=== PATIENT | female | born 1950 | race Caucasian/White ===

== ENCOUNTER 2021-06-26 18:20 | Observation (INO) ==
[2021-06-26 19:20] LABS: Basophils # 0.1 K/mcL (0.0-0.2); Basophils % 0.6 %; Eosinophils # 0.3 K/mcL (0.0-0.6); Eosinophils % 2.1 %; Hematocrit 44.9 % (35.3-44.9); Hemoglobin 14.9 g/dL (11.5-15.4); Immature Granulocytes % 0.3 % (0-4); Lymphocytes # 5.1 K/mcL (0.6-4.6); Lymphocytes % 40.9 %; Mean Corpuscular HGB Conc 33.2 g/dL (31.6-35.5); Mean Corpuscular Hemoglobin 31.6 pg (28.0-33.3); Mean Corpuscular Volume 95.1 fL (83.0-100.0); Mean Platelet Volume 8.8 fL (9.4-12.4); Monocytes # 0.8 K/mcL (0.0-1.3); Monocytes % 6.4 %; Neutrophils # 6.2 K/mcL (1.6-8.9); Platelet Count 355 K/mcL (140-400); Red Blood Count 4.72 M/mcL (3.82-4.97); Red Cell Distribution Width 13.5 % (11.5-14.5); Segmented Neutrophils % 49.7 %; White Blood Count 12.5 K/mcL (4.3-11.1)
[2021-06-26] MEDS ORDERED: Aspirin 325 MG TABLET PO ONE (19:27)
[2021-06-26 19:28] LABS: INR 1.2; Prothrombin Time 12.9 Seconds (9.4-12.1)
[2021-06-26 19:30] LABS: Activated Partial Thrombo Time 41.6 Seconds (26.0-36.0)
[2021-06-26 19:45] LABS: BUN/Creatinine Ratio 21 (6-26); Blood Urea Nitrogen 18 mg/dL (8-23); Calcium 9.8 mg/dL (8.6-10.3); Carbon Dioxide 27 mEq/L (23-29); Chloride 104 mEq/L (98-107); Glucose 127 mg/dL (70-105); Osmolality,Calculated 287 (280-300); Potassium 3.1 mEq/L (3.5-5.1); Sodium 137 mEq/L (136-145); eGFR For African Americans > 60 (> 60); eGFR For Non-African Americans > 60 (> 60)
[2021-06-26 19:46] LABS: Troponin I < 0.03 ng/mL (< 0.04)
[2021-06-26] MEDS: Nitroglycerin 0.4 MG TAB.SUBL SL PRN ×2 (20:55→21:00)
[2021-06-26] MEDS ORDERED: Naloxone 0.4 MG/ML INJ IVP PRN (22:24)
[2021-06-26] MEDS ORDERED: Acetaminophen 325 MG TABLET PO PRN (22:24)
[2021-06-26] MEDS ORDERED: Ondansetron 4 MG/2 ML VIAL IVP PRN (22:24)
[2021-06-26] MEDS ORDERED: Melatonin 3 MG TABLET PO PRN (22:24)
[2021-06-26 22:26] LABS: Influenza A PCR Negative (Negative); Influenza B PCR Negative (Negative); Resp. Syncytial Virus PCR Negative (Negative); SARS-CoV-2 by PCR (In House) Negative (Negative)
[2021-06-27 01:30] LABS: Magnesium 2.1 mg/dL (1.6-2.6)
[2021-06-27] MEDS ORDERED: *HR* Heparin 5,000 UNIT/ML VIAL SQ SCH (06:00)
[2021-06-27] MEDS ORDERED: Regadenoson 0.4 MG/5 ML SYRINGE IVP ONE (07:09)
[2021-06-27 07:15] LABS: Hematocrit 42.9 % (35.3-44.9); Hemoglobin 13.7 g/dL (11.5-15.4); Mean Corpuscular HGB Conc 31.9 g/dL (31.6-35.5); Mean Corpuscular Hemoglobin 31.4 pg (28.0-33.3); Mean Corpuscular Volume 98.4 fL (83.0-100.0); Mean Platelet Volume 8.6 fL (9.4-12.4); Platelet Count 285 K/mcL (140-400); Red Blood Count 4.36 M/mcL (3.82-4.97); Red Cell Distribution Width 13.8 % (11.5-14.5); White Blood Count 8.9 K/mcL (4.3-11.1)
[2021-06-27 07:36] LABS: BUN/Creatinine Ratio 27 (6-26); Blood Urea Nitrogen 22 mg/dL (8-23); Calcium 9.3 mg/dL (8.6-10.3); Carbon Dioxide 26 mEq/L (23-29); Chloride 108 mEq/L (98-107); Glucose 78 mg/dL (70-105); Osmolality,Calculated 294 (280-300); Potassium 3.7 mEq/L (3.5-5.1); Sodium 141 mEq/L (136-145); eGFR For African Americans > 60 (> 60); eGFR For Non-African Americans > 60 (> 60)
[2021-06-27 09:27] VITALS: TEMP 97.8
[2021-06-27] MEDS ORDERED: Acetaminophen 325 MG TABLET PO PRN (09:49)
[2021-06-27 11:43] VITALS: BP 155/96; PULSE 75; O2SAT 96
== END 2021-06-27 15:47 | disposition home or self-care (01) ==
LOC: EMEROOARM 18:20 → 3BNU 18:20 → SUATTDRO 21:42 → 3BNU 22:22
PROVIDERS: ADMIT Internal Medicine; ATTEND Registered Nurse